=== PATIENT | male | born 1945 | race Caucasian/White ===

== ENCOUNTER 2024-07-11 11:21 | Observation (INO) ==
[2024-07-11 11:37] VITALS: BMI 24.7
[2024-07-11] MEDS ORDERED: NS 1,000 ML IV 1,000 ML ONE (12:57)
[2024-07-11] MEDS: NS 1,000 ML IV 1,000 ML IV ONE (13:07)
[2024-07-11 13:20] LABS: MEAN CORPUSCULAR VOLUME 84.1 fL (80.0-100.0)
[2024-07-11 13:23] LABS: BASOPHILS # (AUTO) 0.1 X10^3/uL (0.0-0.1); EOSINOPHILS # (AUTO) 0.1 x10^3/uL (0.0-0.2); EOSINOPHILS % (AUTO) 1.7 % (0.9-2.9); HEMATOCRIT 31.7 % (42.0-54.0); HEMOGLOBIN 11.2 g/dL (13.5-18.0); LYMPHOCYTES # (AUTO) 0.5 X10^3/uL (1.3-2.9); LYMPHOCYTES % (AUTO) 6.5 % (21.0-51.0); MEAN CORPUSCULAR HEMOGLOBIN 29.7 pg (27.0-34.0); MEAN CORPUSCULAR HGB CONC 35.3 g/dL (33.0-35.0); MEAN PLATELET VOLUME 6.1 fL (7.4-11.0); MONOCYTES # (AUTO) 0.5 x10^3/uL (0.3-0.8); MONOCYTES % (AUTO) 6.9 % (0.0-13.0); NEUTROPHILS # (AUTO) 6.6 x10^3/uL (2.2-4.8); NEUTROPHILS % (AUTO) 83.9 % (42.0-75.0); PLATELET COUNT 251 X10^3/uL (150.0-450.0); RED BLOOD COUNT 3.77 X10^6/uL (4.7-6.0); RED CELL DISTRIBUTION WIDTH 13.8 % (11.6-16.5); WHITE BLOOD COUNT 7.9 X10^3/uL (3.6-10.0)
[2024-07-11 13:25] LABS: ALANINE AMINOTRANSFERASE 125 Units/L (12-78); ALBUMIN 3.1 g/dL (3.4-5.0); ALKALINE PHOSPHATASE 94 Units/L (46-116); ASPARTATE AMINO TRANSFERASE 48 Units/L (15-37); BLOOD UREA NITROGEN 53 mg/dL (7-18); CALCIUM 8.6 mg/dL (8.5-10.1); CARBON DIOXIDE 20.9 mmol/L (21-32); CHLORIDE 93 mmol/L (98-107); COR CA(FOR HYPOALB) 9.3 mg/dL (8.5-10.1); COR NA(FOR HYPERGLY) 129 mmol/L (136-145); CREATININE 1.27 mg/dL (0.70-1.30); GLUCOSE 132 mg/dL (65-99); MAGNESIUM 1.4 mg/dL (2.0-2.9); POTASSIUM 3.8 mmol/L (3.5-5.1); SODIUM 128 mmol/L (136-145); TOTAL PROTEIN 6.8 g/dL (6.4-8.2); eGFR NON BLACK RACES 58 (>60)
[2024-07-11 13:54] LABS: BAND NEUTROPHILS % 14 % (0-10); PLATELET MORPHOLOGY COMMENT NORMAL (NORMAL)
--- NOTE | 2024-07-11 14:09 | DR.GENAD ---
HPI Time Seen Time Seen by Provider: 07/11/24 14:09 PCP Primary Care Physician: Gus Complaint/Symptoms Chief Complaint:: patient states he has been receiving radiation secondary throat CA started 4 weeks ago. His last was 2 weeks ago. He complains of generalized weakness, diarrhea, and fever. He has a feeding tube. His states that the oncolgist manager educational thought he may need IV fluids. COVID-19 Coronavirus risk:travel/contact w/high risk person: No Has patient experienced Coronavirus symptoms: No Source History Provided: Patient and Significant Other Mode of Arrival Mode of Arrival: Wheelchair Timing Onset of Chief Complaint: 07/11/24 PMH PMH Past Medical History: Yes Past Medical History: Hypertension and Hypothyroidism Past Medical History Comment: Throat Cancer Past Surgical History: Yes Surgical History: Thyroidectomy Past Surgical History Comment: hernia, feeding tube placement Family History History of Family Medical Conditions: No Family Medical History: Hypertension Social History Does patient currently use any type of tobacco product: No Have you used tobacco products in the last 12 months: No Type of Tobacco Use: None Does any household member use tobacco: No Alcohol Use: Occasionally Do you use any recreational Drugs:: No Lives With: Spouse Lives Where: Home Travel Risk Coronavirus risk:travel/contact w/high risk person: No Has patient experienced Coronavirus symptoms: No Infectious screening In the last 2 months have you had wt loss of >10#?: NO Have you had fever, night sweats or hemotysis?: No Have you traveled outside the country in the last 6 months?: No Isolation: Standard PE Vital Signs Vitals: Vital Signs Temperature 98.3 F Pulse Rate [Bilateral Radial] 98 Pulse Rate 120 Respiratory Rate 18 Respiratory Rate 17 Blood Pressure [Right Arm] 113/71 Blood Pressure 115/87 O2 Sat by Pulse Oximetry 98 O2 Sat by Pulse Oximetry 94 ROR Labs Reviewed 07/11/24 13:01 07/11/24 13:01 Laboratory: 07/11/24 14:00 Stool - Final WBC 7.9 X10^3/uL (3.6-10.0) 07/11/24 13:01 RBC 3.77 X10^6/uL (4.7-6.0) L 07/11/24 13:01 Hgb 11.2 g/dL (13.5-18.0) L 07/11/24 13:01 Hct 31.7 % (42.0-54.0) L 07/11/24 13:01 MCV 84.1 fL (80.0-100.0) 07/11/24 13:01 MCH 29.7 pg (27.0-34.0) 07/11/24 13:01 MCHC 35.3 g/dL (33.0-35.0) H 07/11/24 13:01 RDW 13.8 % (11.6-16.5) 07/11/24 13:01 Plt Count 251 X10^3/uL (150.0-450.0) 07/11/24 13:01 Plt Count Comment Adequate (ADEQUATE) 07/11/24 13:01 MPV 6.1 fL (7.4-11.0) L 07/11/24 13:01 Neut % (Auto) 83.9 % (42.0-75.0) H 07/11/24 13:01 Lymph % (Auto) 6.5 % (21.0-51.0) L 07/11/24 13:01 [place] % (Auto) 6.9 % (0.0-13.0) 07/11/24 13:01 Eos % (Auto) 1.7 % (0.9-2.9) 07/11/24 13:01 Baso % (Auto) 1.0 % (0.2-1.0) 07/11/24 13:01 Neut # (Auto) 6.6 x10^3/uL (2.2-4.8) H 07/11/24 13:01 Lymph # (Auto) 0.5 X10^3/uL (1.3-2.9) L 07/11/24 13:01 [place] # (Auto) 0.5 x10^3/uL (0.3-0.8) 07/11/24 13:01 Eos # (Auto) 0.1 x10^3/uL (0.0-0.2) 07/11/24 13:01 Baso # (Auto) 0.1 X10^3/uL (0.0-0.1) 07/11/24 13:01 Absolute Nucleated RBC 0.1 /100WBC 07/11/24 13:01 Total Counted 100 07/11/24 13:01 Neutrophils % (Manual) 54 % (39-76) 07/11/24 13:01 Band Neutrophils % 14 % (0-10) H 07/11/24 13:01 Lymphocytes % (Manual) 21 % (13-43) 07/11/24 13:01 Monocytes % (Manual) 10 % (4-9) H 07/11/24 13:01 Eosinophils % (Manual) 1 % (0-6) 07/11/24 13:01 Atypical Lymphocytes Present 07/11/24 13:01 Plt Morphology Comment Normal (NORMAL) 07/11/24 13:01 RBC Morphology Normal (NORMAL) 07/11/24 13:01 Sodium 128 mmol/L (136-145) L 07/11/24 13:01 Corrected Sodium 129 mmol/L (136-145) L 07/11/24 13:01 Potassium 3.8 mmol/L (3.5-5.1) 07/11/24 13:01 Chloride 93 mmol/L (98-107) L 07/11/24 13:01 Carbon Dioxide 20.9 mmol/L (21-32) L 07/11/24 13:01 BUN 53 mg/dL (7-18) H 07/11/24 13:01 Creatinine 1.27 mg/dL (0.70-1.30) 07/11/24 13:01 Est GFR (MDRD) Af Amer > 60 (>60) 07/11/24 13:01 Est GFR (MDRD) Non-Af 58 (>60) L 07/11/24 13:01 Glucose 132 mg/dL (65-99) H 07/11/24 13:01 Calcium 8.6 mg/dL (8.5-10.1) 07/11/24 13:01 Corrected Calcium 9.3 mg/dL (8.5-10.1) 07/11/24 13:01 Magnesium 1.4 mg/dL (2.0-2.9) L 07/11/24 13:01 Total Bilirubin 0.50 mg/dL (0.2-1.0) 07/11/24 13:01 AST 48 Units/L (15-37) H 07/11/24 13:01 ALT 125 Units/L (12-78) H 07/11/24 13:01 Alkaline Phosphatase 94 Units/L (46-116) 07/11/24 13:01 Total Protein 6.8 g/dL (6.4-8.2) 07/11/24 13:01 Albumin 3.1 g/dL (3.4-5.0) L 07/11/24 13:01 Globulin 3.7 g/dL (2.5-4.5) 07/11/24 13:01 Albumin/Globulin Ratio 0.8 Ratio (1.1-2.1) L 07/11/24 13:01 Stl Occult Blood (IFOB) Negative (NEGATIVE) 07/11/24 14:00 Stl C. diff Tox B Gene Negative (NEGATIVE) 07/11/24 14:00 Stl C. diff [id number] Presumptive negative (NEGATIVE) 07/11/24 14:00 SARS-CoV-2 (PCR) Negative (NEGATIVE) 07/11/24 14:16 Cryptosporid parvum Ag Negative (NEGATIVE) 07/11/24 14:00 Giardia lamblia Ag Negative (NEGATIVE) 07/11/24 14:00 Opioid Opioid Risk Tool Age (Gage box if 16-45): No History of Preadolescent Sexual Abuse: No Total: 0 Total Score Risk Category: Low Risk Copyright: Lion REYES predicting aberrant behaviors Discharge Plan Diagnosis Discharge Problem: Dehydration, Generalized weakness, Throat cancer, Diarrhea Discharge Plan Patient Disposition: ADMITTED INPATIENT Condition: Stable Prescriptions: No Action enalapril maleate 10 mg tablet 10 mg PO QDAY levothyroxine [Synthroid] 125 mcg tablet 125 mcg PO QDAY levofloxacin 500 mg tablet 500 mg PO QDAY oxycodone-acetaminophen 5-325 mg tablet 1 tab PO Q6HR Health Concerns: Post Hospitalization: new medications and changes needed to prevent readmission or further decline. Pt educated and given instructions on all concerns. Plan of Treatment: Continue with present treatment and follow up plan. Pt is to keep follow up appointment as instructed and take medications as ordered. Orders to Discharge Patient Discharge Orders: Transfer (Routine); Ordered 07/11/24 Ordered By: JIMENA WHITAKER Follow ups/Referrals Follow ups/Referrals: Brady Weber [Primary Care Provider] - 3 days
[2024-07-11 14:54] LABS: CRYPTOSPORIDIUM PARVUM ANTIGEN NEGATIVE (NEGATIVE); GIARDIA LAMBLIA ANTIGEN NEGATIVE (NEGATIVE)
[2024-07-11] MEDS: CONSULT PHARMACY - POTASSIUM & MAGNESIUM XX SCH (16:18)
[2024-07-11] MEDS: NS 1,000 ML IV 1,000 ML IV SCH (17:45)
[2024-07-12 06:20] LABS: BASOPHILS % (AUTO) 0.2 % (0.2-1.0); EOSINOPHILS % (AUTO) 0.4 % (0.9-2.9); HEMATOCRIT 28.6 % (42.0-54.0); HEMOGLOBIN 10.1 g/dL (13.5-18.0); LYMPHOCYTES # (AUTO) 0.6 X10^3/uL (1.3-2.9); LYMPHOCYTES % (AUTO) 7.7 % (21.0-51.0); MEAN CORPUSCULAR HEMOGLOBIN 29.6 pg (27.0-34.0); MEAN CORPUSCULAR HGB CONC 35.3 g/dL (33.0-35.0); MEAN CORPUSCULAR VOLUME 83.9 fL (80.0-100.0); MONOCYTES # (AUTO) 1.2 x10^3/uL (0.3-0.8); MONOCYTES % (AUTO) 16.2 % (0.0-13.0); NEUTROPHILS # (AUTO) 5.5 x10^3/uL (2.2-4.8); NEUTROPHILS % (AUTO) 75.5 % (42.0-75.0); PLATELET COUNT 211 X10^3/uL (150.0-450.0); RED BLOOD COUNT 3.42 X10^6/uL (4.7-6.0); RED CELL DISTRIBUTION WIDTH 14.2 % (11.6-16.5); WHITE BLOOD COUNT 7.3 X10^3/uL (3.6-10.0)
[2024-07-12 06:34] LABS: ALANINE AMINOTRANSFERASE 135 Units/L (12-78); ALBUMIN 2.6 g/dL (3.4-5.0); ALKALINE PHOSPHATASE 86 Units/L (46-116); ASPARTATE AMINO TRANSFERASE 56 Units/L (15-37); BLOOD UREA NITROGEN 43 mg/dL (7-18); CALCIUM 8.3 mg/dL (8.5-10.1); CARBON DIOXIDE 22.6 mmol/L (21-32); CHLORIDE 99 mmol/L (98-107); COR CA(FOR HYPOALB) 9.4 mg/dL (8.5-10.1); CREATININE 0.96 mg/dL (0.70-1.30); GLUCOSE 93 mg/dL (65-99); MAGNESIUM 1.5 mg/dL (2.0-2.9); POTASSIUM 3.5 mmol/L (3.5-5.1); SODIUM 132 mmol/L (136-145); TOTAL PROTEIN 5.8 g/dL (6.4-8.2); eGFR NON BLACK RACES > 60 (>60)
[2024-07-12 07:01] LABS: PLATELET MORPHOLOGY COMMENT NORMAL (NORMAL)
[2024-07-12] MEDS: SYNTHROID 125 mcg TAB PO SCH (09:42)
[2024-07-12] MEDS: VSL#3 PROBIOTIC CAP 112.5 B PO SCH (12:24)
[2024-07-12] MEDS: LOVENOX INJ 40 MG SYR SC SCH (12:24)
--- NOTE | 2024-07-12 12:46 | PCM.PROG ---
Progress Note Progress Note for Day of Date of Exam: 07/12/24 Subjective Subjective: Patient seen at bedside, no acute events overnight. He is doing better this morning. His diarrhea has improved, slowed down. He only had 2 BMs this morning. He is currently admitted for generalized weakness and gastroenteritis. 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 He does have a PEG tube for feeds. All the stool studies have been negative so far. He is currently getting IV fluids. Labs/imaging reviewed: -WBC 7.3 hemoglobin 10.1 K3.5 magnesium 1.5 AST/ALT 56/135 -Stool studies negative, stool culture no growth -AIT pending Plan: Continue hydration with fluids, replace electrolytes as needed. Patient can try tube feeds this afternoon if diarrhea improves. Will add probiotics. Follow-up pending results. Continue home medications. PT OT as tolerated. Monitor a.m. labs and imaging. Past Medical Family Social History Allergies: Allergies No Known Drug Allergies Allergy (Verified 03/09/24 09:45) Vital Signs and I&O's Vital Signs: Vital Signs Temperature 97.7 F Temperature 97.7 F Pulse Rate [Bilateral Radial] 96 Pulse Rate [Bilateral Radial] 96 Respiratory Rate 18 Respiratory Rate 18 Blood Pressure [Left Arm] 145/69 Blood Pressure [Left Arm] 131/67 O2 Sat by Pulse Oximetry 98 O2 Sat by Pulse Oximetry 98 Intake and Output: Intake & Output 07/09/24 07/10/24 07/11/24 07/12/24 23:59 23:59 23:59 23:59 Intake Total 1361 / 1361 Balance 1361 / 1361 Physical Exam Oriented: Normal Eyes: Normal Nose: Normal Throat: Normal Respiratory: Generalized and Diminished Cardiovascular: Normal Auscultation: Bowel Sounds: Normal and Other (PEG tube noted, no signs of infection) Palpation: Normal Tenderness: Normal Skin: Decreased Turgur Musculoskeletal: Normal Psychiatric: Normal Mood Description: Calm Affect: Normal Speech Pattern: Appropriate and Delayed Laboratory and Diagnostics 07/12/24 05:37 07/12/24 05:37 Labs: 07/11/24 14:00 Stool Stool Culture - Preliminary 07/11/24 14:00 Stool - Final Laboratory WBC 7.3 X10^3/uL (3.6-10.0) 07/12/24 05:37 RBC 3.42 X10^6/uL (4.7-6.0) L 07/12/24 05:37 Hgb 10.1 g/dL (13.5-18.0) L 07/12/24 05:37 Hct 28.6 % (42.0-54.0) L 07/12/24 05:37 MCV 83.9 fL (80.0-100.0) 07/12/24 05:37 MCH 29.6 pg (27.0-34.0) 07/12/24 05:37 MCHC 35.3 g/dL (33.0-35.0) H 07/12/24 05:37 RDW 14.2 % (11.6-16.5) 07/12/24 05:37 Plt Count 211 X10^3/uL (150.0-450.0) 07/12/24 05:37 Plt Count Comment Adequate (ADEQUATE) 07/12/24 05:37 MPV 6.0 fL (7.4-11.0) L 07/12/24 05:37 Neut % (Auto) 75.5 % (42.0-75.0) H 07/12/24 05:37 Lymph % (Auto) 7.7 % (21.0-51.0) L 07/12/24 05:37 Graves % (Auto) 16.2 % (0.0-13.0) H 07/12/24 05:37 Eos % (Auto) 0.4 % (0.9-2.9) L 07/12/24 05:37 Baso % (Auto) 0.2 % (0.2-1.0) 07/12/24 05:37 Neut # (Auto) 5.5 x10^3/uL (2.2-4.8) H 07/12/24 05:37 Lymph # (Auto) 0.6 X10^3/uL (1.3-2.9) L 07/12/24 05:37 Graves # (Auto) 1.2 x10^3/uL (0.3-0.8) H 07/12/24 05:37 Eos # (Auto) 0.0 x10^3/uL (0.0-0.2) 07/12/24 05:37 Baso # (Auto) 0.0 X10^3/uL (0.0-0.1) 07/12/24 05:37 Absolute Nucleated RBC 0.1 /100WBC 07/12/24 05:37 Total Counted 100 07/12/24 05:37 Neutrophils % (Manual) 61 % (39-76) 07/12/24 05:37 Band Neutrophils % 14 % (0-10) H 07/11/24 13:01 Lymphocytes % (Manual) 22 % (13-43) 07/12/24 05:37 Monocytes % (Manual) 18 % (4-9) H 07/12/24 05:37 Eosinophils % (Manual) 1 % (0-6) 07/11/24 13:01 Atypical Lymphocytes Few 07/12/24 05:37 Plt Morphology Comment Normal (NORMAL) 07/12/24 05:37 RBC Morphology Normal (NORMAL) 07/12/24 05:37 Sodium 132 mmol/L (136-145) L 07/12/24 05:37 Corrected Sodium TNP 07/12/24 05:37 Potassium 3.5 mmol/L (3.5-5.1) 07/12/24 05:37 Chloride 99 mmol/L (98-107) 07/12/24 05:37 Carbon Dioxide 22.6 mmol/L (21-32) 07/12/24 05:37 BUN 43 mg/dL (7-18) H 07/12/24 05:37 Creatinine 0.96 mg/dL (0.70-1.30) 07/12/24 05:37 Est GFR (MDRD) Af Amer > 60 (>60) 07/12/24 05:37 Est GFR (MDRD) Non-Af > 60 (>60) 07/12/24 05:37 Glucose 93 mg/dL (65-99) 07/12/24 05:37 POC Glucose (mg/dL) 96 mg/dL (65-99) 07/12/24 05:24 Calcium 8.3 mg/dL (8.5-10.1) L 07/12/24 05:37 Corrected Calcium 9.4 mg/dL (8.5-10.1) 07/12/24 05:37 Magnesium 1.5 mg/dL (2.0-2.9) L 07/12/24 05:37 Total Bilirubin 0.30 mg/dL (0.2-1.0) 07/12/24 05:37 AST 56 Units/L (15-37) H 07/12/24 05:37 ALT 135 Units/L (12-78) H 07/12/24 05:37 Alkaline Phosphatase 86 Units/L (46-116) 07/12/24 05:37 Total Protein 5.8 g/dL (6.4-8.2) L 07/12/24 05:37 Albumin 2.6 g/dL (3.4-5.0) L 07/12/24 05:37 Globulin 3.2 g/dL (2.5-4.5) 07/12/24 05:37 Albumin/Globulin Ratio 0.8 Ratio (1.1-2.1) L 07/12/24 05:37 Stl Occult Blood (IFOB) Negative (NEGATIVE) 07/11/24 14:00 Stl C. diff Tox B Gene Negative (NEGATIVE) 07/11/24 14:00 Stl C. diff [id number] Presumptive negative (NEGATIVE) 07/11/24 14:00 SARS-CoV-2 (PCR) Negative (NEGATIVE) 07/11/24 14:16 Cryptosporid parvum Ag Negative (NEGATIVE) 07/11/24 14:00 Giardia lamblia Ag Negative (NEGATIVE) 07/11/24 14:00 Plan (1) Generalized weakness: Status: Acute (2) Dehydration: Status: Acute (3) Diarrhea: Status: Acute Qualifiers: Diarrhea type: unspecified type Qualified Code(s): R19.7 - Diarrhea, unspecified (4) Gastroenteritis: Status: Acute (5) Hypomagnesemia: Status: Acute (6) Throat cancer: Status: Acute (7) Anemia: Status: Acute Qualifiers: Anemia type: unspecified type Qualified Code(s): D64.9 - Anemia, unspecified
[2024-07-13 04:44] VITALS: RESP 18
[2024-07-13 05:53] LABS: BASOPHILS % (AUTO) 0.3 % (0.2-1.0); EOSINOPHILS % (AUTO) 0.1 % (0.9-2.9); HEMATOCRIT 27.5 % (42.0-54.0); HEMOGLOBIN 9.8 g/dL (13.5-18.0); LYMPHOCYTES # (AUTO) 0.6 X10^3/uL (1.3-2.9); LYMPHOCYTES % (AUTO) 8.1 % (21.0-51.0); MEAN CORPUSCULAR HEMOGLOBIN 30.2 pg (27.0-34.0); MEAN CORPUSCULAR HGB CONC 35.9 g/dL (33.0-35.0); MEAN CORPUSCULAR VOLUME 84.1 fL (80.0-100.0); MONOCYTES # (AUTO) 1.1 x10^3/uL (0.3-0.8); MONOCYTES % (AUTO) 14.6 % (0.0-13.0); NEUTROPHILS # (AUTO) 5.8 x10^3/uL (2.2-4.8); NEUTROPHILS % (AUTO) 76.9 % (42.0-75.0); PLATELET COUNT 181 X10^3/uL (150.0-450.0); RED BLOOD COUNT 3.27 X10^6/uL (4.7-6.0); RED CELL DISTRIBUTION WIDTH 13.9 % (11.6-16.5); WHITE BLOOD COUNT 7.6 X10^3/uL (3.6-10.0)
[2024-07-13 06:08] LABS: ALANINE AMINOTRANSFERASE 128 Units/L (12-78); ALBUMIN 2.4 g/dL (3.4-5.0); ALKALINE PHOSPHATASE 83 Units/L (46-116); ASPARTATE AMINO TRANSFERASE 54 Units/L (15-37); BLOOD UREA NITROGEN 33 mg/dL (7-18); CALCIUM 7.9 mg/dL (8.5-10.1); CARBON DIOXIDE 23.6 mmol/L (21-32); CHLORIDE 102 mmol/L (98-107); COR CA(FOR HYPOALB) 9.2 mg/dL (8.5-10.1); CREATININE 0.72 mg/dL (0.70-1.30); GLUCOSE 89 mg/dL (65-99); MAGNESIUM 1.3 mg/dL (2.0-2.9); POTASSIUM 3.3 mmol/L (3.5-5.1); SODIUM 133 mmol/L (136-145); TOTAL PROTEIN 5.2 g/dL (6.4-8.2); eGFR NON BLACK RACES > 60 (>60)
[2024-07-13] MEDS: CONSULT PHARMACY - POTASSIUM & MAGNESIUM XX SCH (06:56)
[2024-07-13 07:01] LABS: BAND NEUTROPHILS % 10 % (0-10)
[2024-07-13 07:02] LABS: PLATELET MORPHOLOGY COMMENT NORMAL (NORMAL)
[2024-07-13] MEDS ORDERED: K-DUR TAB 20 MEQ PO SCH (09:00)
[2024-07-13] MEDS ORDERED: MAG-OX TAB PO SCH (09:00)
[2024-07-13 09:23] VITALS: PULSE 81; TEMP 97.9
[2024-07-13] MEDS: NS + KCL 20 MEQ/L 1,000 ML with MAGNESIUM SULFATE 50% INJ VIAL 2 G IV SCH (09:31)
[2024-07-13] MEDS: NS 500 ML IV 500 ML with POTASSIUM CHLORIDE INJ 40 MEQ VIAL 40 MEQ, MAGNESIUM SULFATE 5... IV ONE (10:16)
[2024-07-13 12:49] VITALS: BP 130/63; O2SAT 99
--- NOTE | 2024-07-15 10:36 | W.DIS.FURT ---
Summary of Discharge Discharge Summary of Date Date of Exam: 07/13/24 Admission Date Date of Admission: 07/11/24 Admission Diagnosis Patient Problems (Updated 07/12/24 @ 12:46 by Zita Child) Dehydration (Acute) E86.0 Generalized weakness (Acute) R53.1 Throat cancer (Acute) C14.0 Diarrhea (Acute) R19.7 Hospital Course: Mr. 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 Patient uses PEG tube for nutrition and does not take any p.o. intake. reports patient started having several episodes of watery diarrhea for the past 24 hours. In the ER, patient appeared to be dehydrated. Stool studies were collected and patient was admitted for dehydration and weakness. Stool studies were negative. Patient's labs were monitored daily and electrolytes were replaced as needed. He was feeling better and diarrhea had slowed down. He was able to ambulate in the room. His tube feeds were restarted and patient was tolerating it well. He was stable to be discharged home and will follow-up with PCP and oncology as scheduled. Vital Signs: Vital Signs (72 hours) 07/11/24 11:22 07/11/24 15:50 07/11/24 17:36 Temperature 98.3 F Pulse Rate 120 H Pulse Rate [Bilateral Radial] 98 H Pulse Rate [Right Brachial] Respiratory Rate 17 18 Blood Pressure 115/87 Blood Pressure [Left Arm] Blood Pressure [Right Arm] 113/71 O2 Sat by Pulse Oximetry 94 L 98 Oxygen Delivery Method Room Air Room Air Room Air 07/11/24 17:59 07/11/24 19:00 07/11/24 20:00 Temperature 98.6 F 97.7 F Pulse Rate Pulse Rate [Bilateral Radial] 113 H 99 H Pulse Rate [Right Brachial] Respiratory Rate 17 18 Blood Pressure Blood Pressure [Left Arm] 151/73 113/60 Blood Pressure [Right Arm] O2 Sat by Pulse Oximetry 95 97 Oxygen Delivery Method Room Air Room Air Room Air 07/12/24 00:00 07/12/24 04:00 07/12/24 07:52 Temperature 97.7 F 97.7 F 97.7 F Pulse Rate Pulse Rate [Bilateral Radial] 113 H 96 H 96 H Pulse Rate [Right Brachial] Respiratory Rate 18 18 18 Blood Pressure Blood Pressure [Left Arm] 132/64 128/58 131/67 Blood Pressure [Right Arm] O2 Sat by Pulse Oximetry 99 98 98 Oxygen Delivery Method Room Air Room Air Room Air 07/12/24 07:00 07/12/24 12:00 07/12/24 15:56 Temperature 97.7 F 97.4 F L Pulse Rate Pulse Rate [Bilateral Radial] 96 H 91 H Pulse Rate [Right Brachial] Respiratory Rate 18 18 Blood Pressure Blood Pressure [Left Arm] 145/69 117/63 Blood Pressure [Right Arm] O2 Sat by Pulse Oximetry 98 97 Oxygen Delivery Method Room Air Room Air Room Air 07/12/24 19:00 07/12/24 20:00 07/13/24 00:00 Temperature 98.2 F 98.4 F Pulse Rate Pulse Rate [Bilateral Radial] Pulse Rate [Right Brachial] 86 88 Respiratory Rate 20 19 Blood Pressure Blood Pressure [Left Arm] Blood Pressure [Right Arm] 112/61 119/64 O2 Sat by Pulse Oximetry 98 98 Oxygen Delivery Method Room Air Room Air 07/13/24 04:00 07/13/24 08:00 07/13/24 07:00 Temperature 98.1 F 97.9 F Pulse Rate Pulse Rate [Bilateral Radial] Pulse Rate [Right Brachial] 90 81 Respiratory Rate 18 18 Blood Pressure Blood Pressure [Left Arm] Blood Pressure [Right Arm] 130/61 125/61 O2 Sat by Pulse Oximetry 98 98 Oxygen Delivery Method Room Air Room Air Room Air 07/13/24 12:00 Temperature 97.9 F Pulse Rate Pulse Rate [Bilateral Radial] Pulse Rate [Right Brachial] 81 Respiratory Rate 18 Blood Pressure Blood Pressure [Left Arm] Blood Pressure [Right Arm] 130/63 O2 Sat by Pulse Oximetry 99 Oxygen Delivery Method Room Air Labs: Laboratory Last Values WBC 7.6 X10^3/uL (3.6-10.0) 07/13/24 05:20 RBC 3.27 X10^6/uL (4.7-6.0) L 07/13/24 05:20 Hgb 9.8 g/dL (13.5-18.0) L 07/13/24 05:20 Hct 27.5 % (42.0-54.0) L 07/13/24 05:20 MCV 84.1 fL (80.0-100.0) 07/13/24 05:20 MCH 30.2 pg (27.0-34.0) 07/13/24 05:20 MCHC 35.9 g/dL (33.0-35.0) H 07/13/24 05:20 RDW 13.9 % (11.6-16.5) 07/13/24 05:20 Plt Count 181 X10^3/uL (150.0-450.0) 07/13/24 05:20 Plt Count Comment Adequate (ADEQUATE) 07/13/24 05:20 MPV 6.0 fL (7.4-11.0) L 07/13/24 05:20 Neut % (Auto) 76.9 % (42.0-75.0) H 07/13/24 05:20 Lymph % (Auto) 8.1 % (21.0-51.0) L 07/13/24 05:20 [place] % (Auto) 14.6 % (0.0-13.0) H 07/13/24 05:20 Eos % (Auto) 0.1 % (0.9-2.9) L 07/13/24 05:20 Baso % (Auto) 0.3 % (0.2-1.0) 07/13/24 05:20 Neut # (Auto) 5.8 x10^3/uL (2.2-4.8) H 07/13/24 05:20 Lymph # (Auto) 0.6 X10^3/uL (1.3-2.9) L 07/13/24 05:20 [place] # (Auto) 1.1 x10^3/uL (0.3-0.8) H 07/13/24 05:20 Eos # (Auto) 0.0 x10^3/uL (0.0-0.2) 07/13/24 05:20 Baso # (Auto) 0.0 X10^3/uL (0.0-0.1) 07/13/24 05:20 Absolute Nucleated RBC 0.3 /100WBC 07/13/24 05:20 Total Counted 100 07/13/24 05:20 Neutrophils % (Manual) 45 % (39-76) 07/13/24 05:20 Band Neutrophils % 10 % (0-10) 07/13/24 05:20 Lymphocytes % (Manual) 40 % (13-43) 07/13/24 05:20 Monocytes % (Manual) 5 % (4-9) 07/13/24 05:20 Eosinophils % (Manual) 1 % (0-6) 07/11/24 13:01 Atypical Lymphocytes Present 07/13/24 05:20 Plt Morphology Comment Normal (NORMAL) 07/13/24 05:20 RBC Morphology Normal (NORMAL) 07/13/24 05:20 Sodium 133 mmol/L (136-145) L 07/13/24 05:20 Corrected Sodium TNP 07/13/24 05:20 Potassium 3.3 mmol/L (3.5-5.1) L 07/13/24 05:20 Chloride 102 mmol/L (98-107) 07/13/24 05:20 Carbon Dioxide 23.6 mmol/L (21-32) 07/13/24 05:20 BUN 33 mg/dL (7-18) H 07/13/24 05:20 Creatinine 0.72 mg/dL (0.70-1.30) 07/13/24 05:20 Est GFR (MDRD) Af Amer > 60 (>60) 07/13/24 05:20 Est GFR (MDRD) Non-Af > 60 (>60) 07/13/24 05:20 Glucose 89 mg/dL (65-99) 07/13/24 05:20 POC Glucose (mg/dL) 96 mg/dL (65-99) 07/12/24 05:24 Calcium 7.9 mg/dL (8.5-10.1) L 07/13/24 05:20 Corrected Calcium 9.2 mg/dL (8.5-10.1) 07/13/24 05:20 Magnesium 1.3 mg/dL (2.0-2.9) L 07/13/24 05:20 Total Bilirubin 0.30 mg/dL (0.2-1.0) 07/13/24 05:20 AST 54 Units/L (15-37) H 07/13/24 05:20 ALT 128 Units/L (12-78) H 07/13/24 05:20 Alkaline Phosphatase 83 Units/L (46-116) 07/13/24 05:20 Total Protein 5.2 g/dL (6.4-8.2) L 07/13/24 05:20 Albumin 2.4 g/dL (3.4-5.0) L 07/13/24 05:20 Globulin 2.8 g/dL (2.5-4.5) 07/13/24 05:20 Albumin/Globulin Ratio 0.9 Ratio (1.1-2.1) L 07/13/24 05:20 Stl Occult Blood (IFOB) Negative (NEGATIVE) 07/11/24 14:00 Stl C. diff Tox B Gene Negative (NEGATIVE) 07/11/24 14:00 Stl C. diff [id number] Presumptive negative (NEGATIVE) 07/11/24 14:00 SARS-CoV-2 (PCR) Negative (NEGATIVE) 07/11/24 14:16 Cryptosporid parvum Ag Negative (NEGATIVE) 07/11/24 14:00 Giardia lamblia Ag Negative (NEGATIVE) 07/11/24 14:00 Reason For Visit: DEHYDRATION, DIARRHEA, GENERALIZED WEAKNESS, Discharge Diagnosis All Active Problems (Updated 07/12/24 @ 12:46 by Zita Child) Gastroenteritis (Acute) Anemia (Acute) Hypomagnesemia (Acute) Rib contusion (Acute) Laceration of left thumb (Acute) Contusion of left thumb (Acute) Reaction to contrast media (Acute) Dehydration (Acute) Generalized weakness (Acute) Throat cancer (Acute) Diarrhea (Acute) Plan of Treatment: Continue with present treatment and follow up plan. Pt is to keep follow up appointment as instructed and take medications as ordered. Discharge Medications Discharge Medications: No Known Drug Allergies Allergy (Verified 03/09/24 09:45) CONTINUE taking the following medications oxycodone-acetaminophen 5 mg-325 mg tablet 1 tab PO Q6HR 07/11/24 [History] Discharge Disposition Discharge Disposition: home Discharge Condition: stable Discharge Plan Discharge Plan Hospital Course: Mr. 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 Patient uses PEG tube for nutrition and does not take any p.o. intake. reports patient started having several episodes of watery diarrhea for the past 24 hours. In the ER, patient appeared to be dehydrated. Stool studies were collected and patient was admitted for dehydration and weakness. Stool studies were negative. Patient's labs were monitored daily and electrolytes were replaced as needed. He was feeling better and diarrhea had slowed down. He was able to ambulate in the room. His tube feeds were restarted and patient was tolerating it well. He was stable to be discharged home and will follow-up with PCP and oncology as scheduled. Patient Disposition: HOME HEALTH SERVICE Condition: Stable Health Concerns: Post Hospitalization: new medications and changes needed to prevent readmission or further decline. Pt educated and given instructions on all concerns. Care Plan Goals: Problem: Pain/Alteration in Comfort Goal: Improve/ Resolve Pain; Achieve Pain Tolerance Instructions: Take pain medications as prescribed. Contact your primary care provider if your pain is unrelieved or worsens. Follow up with primary care provider as directed. Plan of Treatment: Continue with present treatment and follow up plan. Pt is to keep follow up appointment as instructed and take medications as ordered. Prescription drug monitoring program results: PDMP reviewed and no concerns identified Prescriptions: Continued enalapril maleate 10 mg tablet 10 mg PO QDAY levothyroxine [Synthroid] 125 mcg tablet 125 mcg PO QDAY oxycodone-acetaminophen 5-325 mg tablet 1 tab PO Q6HR Discontinued levofloxacin 500 mg tablet 500 mg PO QDAY Follow ups/Referrals Follow ups/Referrals: Brady Weber [Primary Care Provider] - 07/18/24 11:20 am Instructions Instructions: Fatigue, Weakness, [id number], Dehydration, Older Adult, [id number] Activity Restrictions/Additional Instructions: check potassium and mag level at the appointment Stand Alone Forms: Excuse From Work or School, [facility], Post Hospital Follow Up Care
== END 2024-07-13 16:10 | disposition home health service (06) ==
LOC: MED/SURG 11:21 → ER 11:21 → MED/SURG 17:43
PROVIDERS: ADMIT Internal Medicine; ATTEND Internal Medicine
DX: R73.09 Other abnormal glucose; E87.1 Hypo-osmolality and hyponatremia; I10 Essential (primary) hypertension; C14.0 Malignant neoplasm of pharynx, unspecified; R53.1 Weakness; D64.89 Other specified anemias; E03.8 Other specified hypothyroidism; Z92.3 Personal history of irradiation; E86.0 Dehydration; Z20.822 Contact with and (suspected) exposure to COVID-19; Z93.1 Gastrostomy status; Z92.21 Personal history of antineoplastic chemotherapy; R26.89 Other abnormalities of gait and mobility; R19.7 Diarrhea, unspecified; E83.42 Hypomagnesemia